=== PATIENT | female | born 1960 | race Caucasian/White ===

== ENCOUNTER 2024-02-29 15:56 | Emergency (ER) | payer OTHER, SELFPAY ==
[2024-02-29 15:58] VITALS: BP 120/80
--- NOTE | 2024-02-29 16:15 | EDRN ---
Patient came up to the registration desk stating 'I need to go back to a room immediately. I am going to have a panic attack. If I don't get back there now I am going to start to scream.' Explained to patient that she will be placed in a ED room as
soon as one became available.
--- NOTE | 2024-02-29 16:55 | ED.GENMED ---
History of Present Illness
General
Chief Complaint: Cardiac Symptoms
Source: patient
Exam Limitations: none
Time Seen by Provider: 02/29/24 16:34
Nursing documentation reviewed up to this point in time: agreed with
History of Present Illness
History of Present Illness:
63-year-old female past medical history of anxiety presenting to the emergency department today with concerns of heart racing as well as muscle tightening to the right leg has been ongoing over the past couple days. She claims that she recently
stopped Ativan 2 days ago was previously taking 1 mg twice daily for multiple months. She additionally increased her Zoloft from 25 mg to 50 mg over the past few days as well. She thinks that this may be secondary to other medication changes.
Denies any chest pain shortness of breath. Has been feeling very anxious.
Review of Systems
Review of Systems
Allergies reviewed?: Yes
All Other Systems: ROS reviewed and negative except as documented in HPI and ROS
Phy Exam
Physical Exam
Physical Exam:
GENERAL: Alert , in no apparent distress
EYE: pupils equal and reactive
NECK: Supple, no significant adenopathy.
ENT: o/p clr, mmm.
CARDIAC: Regular rate and rhythm .
LUNGS: Clear breath sounds bilaterally, no acute respiratory distress, no wheezes/rales/rhonchi
ABDOMEN: Soft, without focal tenderness, no r/g, no cvat
NEUROLOGICAL: Alert and oriented, no focal neuro deficits
SKIN: Warm and dry, skin intact.
MUSCULOSKELETAL: No edema, well perfused.
PSYCH: Normal and appropriate interaction.
Course
Orders/Labs/Results
Orders:
Orders
02/29/24 16:02
Electrocardiogram (*1) Urgent
Reason for Study: Tachycardia
02/29/24 16:03
EKG- Treatment ONCE
02/29/24 16:54
Lorazepam [Ativan] 1 mg PO NOW STA
Vital Signs
Initial and Last Documented VS:
Initial Vital Signs
Temp Pulse Resp BP Pulse Ox
98.6 F 75 16 120/80 100
02/29/24 15:58 02/29/24 15:58 02/29/24 15:58 02/29/24 15:58 02/29/24 15:58
Last Documented Vital Signs
Temp Pulse Resp BP Pulse Ox
98.6 F 76 17 134/62 100
02/29/24 15:58 02/29/24 18:29 02/29/24 18:29 02/29/24 18:29 02/29/24 15:58
MDM/Problems Addressed
MDM/Problems Addressed:
63-year-old female presenting to the emergency department today with concerns of elevated heart rate and anxiety worsening over the past few days recently stopped Ativan 2 days ago was previously taking 1 mg twice daily over the past few months.
Also increased on her sertraline from 25 to 50 mg a few days ago as well. Upon arrival vital signs are normal patient no distress patient does appear somewhat anxious but no acute symptoms normal heart rate. EKG without acute findings. It was
offered to her to get labs to ensure there is no electrolyte problem or alternate cause she refused any of the feet feels firmly this is secondary to medication issues. The risk of missing alternate diagnosis was explained to the patient she
demonstrated understanding
*Critical Care Note
Total Time (30-74mins, 75-104mins- exclusive of procedures): Not Applicable
ED Attending Note
-
Portions of this chart may have been created with voice recognition software.� Occasional wrong word or��sound alike� substitutions may have occurred due to the inherent limitations of voice recognition software.
Discharge Plan
Departure
Patient Disposition: Home (Routine Discharge)
Date of Disposition: 02/29/24
Time of Disposition: 18:03
Patient with high blood pressure during this ER visit?: No
Condition: Good
Covid-19: Not Applicable
Discharge Problem:
Tachycardia, Anxiety
Instructions: Anxiety, Adult ED
Prescriptions:
New
lorazepam [Ativan] 1 mg tablet
1 mg PO BID PRN (Reason: anxiety) 7 Days Qty: 14 0RF
Referrals:
Kerline Fuentes PA-C [Family Provider] -
Activity Restrictions/Additional Instructions:
You came to the emergency department today with concerns of symptoms prior to arrival. Here you had a reassuring assessment. You were given Ativan. Please take this as prescribed and follow-up closely with your primary care doctor. Return to the
emergency department for any worsening, new or concerning symptoms.
Interventions
Interventions:
*Risk Screen - Suicide Last Done: 02/29/24 16:02
*General Assessment Last Done: 02/29/24 18:00
*Neglect/Abuse Screening Last Done: 02/29/24 16:02
ED- Fall Risk Assessment Last Done: 02/29/24 18:00
*Nursing Disposition Last Done: 02/29/24 18:29
ED- Pulmonary Assessment Last Done: 02/29/24 18:00
ED- Cardiac Assessment Last Done: 02/29/24 18:00
Discharge Date and Time
Discharge Date/Time: 02/29/24 18:25
Print Language: BANGLADESHI
[2024-02-29] MEDS: ATIVAN 1 MG PO (18:22)
[2024-02-29 18:29] VITALS: BP 134/62
== END 2024-02-29 18:25 | disposition home or self-care (01) ==
LOC: EMR 15:56
PROVIDERS: EMERGENCY PHYSICIAN Student in an Organized Health Care Education/Training Program; FAMILY PHYSICIAN Physician Assistant Medical
DX: R00.0 Tachycardia, unspecified (principal); F41.9 Anxiety disorder, unspecified
CPT/HCPCS: 99283; 93005

== ENCOUNTER → 2025-05-04 11:35 | Outpatient (REF) | payer MEDICARE, SELFPAY | LOC: RAD 11:35 | PROVIDERS: ATTENDING PHYSICIAN Physician Assistant Medical | DX: R05.1 Acute cough (principal) | CPT/HCPCS: 71046 ==